=== PATIENT | male | born 1950 ===

== ENCOUNTER 2020-05-30 08:10 | Day surgery (SDC) | payer OTHER | END 2020-05-30 13:30 | disposition home or self-care (01) | LOC: AMB-ENDOS 08:10 | PROVIDERS: ATTEND Surgery | DX: K62.89 Other specified diseases of anus and rectum (principal); Z20.822 Contact with and (suspected) exposure to COVID-19 ==

== ENCOUNTER 2020-06-29 11:15 | Inpatient (IN) | payer OTHER ==
[~2020-06-29] VITALS: Ht 180.3 cm; Wt 122.5 kg
[2020-06-29] MEDS ORDERED: METFORMIN HCL500 M3 PO (15:11)
[2020-06-29] MEDS ORDERED: TOPROL XL25 M1 PO (15:12)
[2020-06-29] MEDS ORDERED: B12 ACTIVE1000 MCG PO (15:12)
[2020-06-29] MEDS ORDERED: SIMVASTATIN5 MG PO (15:12)
[2020-06-29] MEDS ORDERED: LASIX20 MG PO (15:12)
[2020-06-29] MEDS ORDERED: MAXIMUM D3325 MCG PO (15:13)
[2020-07-15] MEDS ORDERED: VITAMIN B-121000 MC2 (11:04)
[2020-07-15] MEDS ORDERED: FAMOTIDINE40 MG (11:04)
[2020-07-15] MEDS ORDERED: METFORMIN HCL500 M4 (11:05)
[2020-07-15] MEDS ORDERED: LISINOPRIL-HCT1 EACH (11:05)
[2020-07-15] MEDS ORDERED: FUROSEMIDE40 MG (11:05)
[2020-07-15] MEDS ORDERED: METOPROLOL TAR100 MG (11:05)
[2020-07-15] MEDS ORDERED: ST. JOSEPH ASPI81 M2 (11:05)
[2020-07-15] MEDS ORDERED: SIMVASTATIN20 MG (11:05)
[2020-07-15] MEDS ORDERED: VITAMIN D31250 MCG (11:06)
[2020-07-19] MEDS ORDERED: PRILOSEC OTC20 MG PO (12:09)
[2020-07-19] MEDS ORDERED: PERCOCET 5-3251 EACH PO (12:09)
== END 2020-07-19 13:00 | disposition home or self-care (01) | DRG 330 ==
LOC: SURH 07-05 07:45 → O/R 07-15 05:22 → SURH 07-15 05:22
PROVIDERS: ADMIT Surgery; ATTEND Surgery
PROC: 0DTP4ZZ Resection of Rectum, Percutaneous Endoscopic Approach (ICD-10-PCS; 2020-07-15)
PROC: 07BC4ZZ Excision of Pelvis Lymphatic, Percutaneous Endoscopic Approach (ICD-10-PCS; 2020-07-15)
PROC: 0D1B4Z4 Bypass Ileum to Cutaneous, Percutaneous Endoscopic Approach (ICD-10-PCS; 2020-07-15)
PROC: 0DBN4ZZ Excision of Sigmoid Colon, Percutaneous Endoscopic Approach (ICD-10-PCS; principal; 2020-07-15 07:00)
DX: C20 Malignant neoplasm of rectum (principal); K91.840 Postprocedural hemorrhage of a digestive system organ or structure following a digestive system procedure; K94.11 Enterostomy hemorrhage; E66.8 Other obesity; Z68.37 Body mass index [BMI] 37.0-37.9, adult; I10 Essential (primary) hypertension; E11.9 Type 2 diabetes mellitus without complications; R59.0 Localized enlarged lymph nodes

== ENCOUNTER 2022-01-22 08:15 | Inpatient (IN) | payer OTHER ==
[~2022-01-22] VITALS: Ht 180.3 cm; Wt 126.1 kg
[~2022-01-22 08:15] MED LIST: B12 ACTIVE1000 MCG PO; FAMOTIDINE40 MG; FUROSEMIDE40 MG; LASIX20 MG PO; LISINOPRIL-HCT1 EACH; MAXIMUM D3325 MCG PO; METFORMIN HCL500 M3 PO; METFORMIN HCL500 M4; METOPROLOL TAR100 MG; PERCOCET 5-3251 EACH PO; PRILOSEC OTC20 MG PO; SIMVASTATIN20 MG; SIMVASTATIN5 MG PO; ST. JOSEPH ASPI81 M2; TOPROL XL25 M1 PO; VITAMIN B-121000 MC2; VITAMIN D31250 MCG
[2022-01-29] MEDS ORDERED: ULTRACET PO (13:46)
[2022-01-29] MEDS ORDERED: INTESTINEX680 M1 PO (13:46)
== END 2022-01-29 17:54 | disposition home or self-care (01) | DRG 348 ==
LOC: O/R 01-26 07:00 → SURH 01-26 08:15
PROVIDERS: ADMIT Surgery; ATTEND Surgery
PROC: 0WQF4ZZ Repair Abdominal Wall, Percutaneous Endoscopic Approach (ICD-10-PCS; 2022-01-26)
PROC: 0DBB4ZZ Excision of Ileum, Percutaneous Endoscopic Approach (ICD-10-PCS; principal; 2022-01-26 08:30)
DX: C20 Malignant neoplasm of rectum (principal); K62.5 Hemorrhage of anus and rectum; Z43.2 Encounter for attention to ileostomy; R59.0 Localized enlarged lymph nodes; K59.09 Other constipation; I10 Essential (primary) hypertension; Z20.822 Contact with and (suspected) exposure to COVID-19